=== PATIENT | male | born 1950 | race Caucasian/White ===

== ENCOUNTER 2016-06-20 07:29 | Emergency (ER) | payer OTHER ==
[2016-06-20 07:40] VITALS: RESP 16
[2016-06-20] MEDS ORDERED: NS 1,000 ML IV ONE (08:01)
--- NOTE | 2016-06-20 08:08 | EDPHY ---
H & P Stated Complaint: generalized abd pain/dysuria/nausea Time Seen by Provider: 06/20/16 07:58 HPI/ROS: CHIEF COMPLAINT: Generalized abdominal pain, dysuria, urinary frequency, nausea , slight left flank pain HISTORY OF PRESENT ILLNESS: The patient presents to the ED with a one-week history of generalized abdominal pain, dysuria, urinary frequency, nausea and slight left flank pain. The patient denies prior history of BPH. The patient denies fever, cough or congestion. He does report associated generalized malaise. The patient has no complaints of headache, numbness, weakness or respiratory complaints. The patient denies recent antibiotic usage. REVIEW OF SYSTEMS: A comprehensive 10 point review of systems is otherwise negative aside from elements mentioned in the history of present illness. Source: Patient Exam Limitations: No limitations - Personal History Current Tetanus/Diphtheria Vaccine: Yes Current Tetanus Diphtheria and Acellular Pertussis (TDAP): Yes - Medical/Surgical History Hx Asthma: Yes Hx Chronic Respiratory Disease: No Hx Diabetes: No Hx Cardiac Disease: No Hx Renal Disease: No Hx Cirrhosis: No Hx Alcoholism: No Hx HIV/AIDS: No Hx Splenectomy or Spleen Trauma: No Other PMH: PNEUMONIA, CHRONIC BRONCHITIS, ASTHMA, WATTS'S ESOPHAGUS - Social History Smoking Status: Never smoked - Physical Exam Exam: General Appearance: Slightly obese male, no acute distress Eyes: Pupils equal and round no pallor or injection ENT, Mouth: Mucous membranes moist Respiratory: There are no retractions, lungs are clear to auscultation Cardiovascular: Regular rate and rhythm Gastrointestinal: Minimal suprapubic tenderness, no distension, normal bowel sounds Back: No CVA tenderness Neurological: A&O, normal motor function, normal sensory exam, normal cranial nerves Skin: Warm and dry, no rashes Musculoskeletal: Neck is supple nontender Extremities: symmetrical, full range of motion Constitutional: Initial Vital Signs Temperature (C) 36.5 C 06/20/16 07:37 Heart Rate 83 06/20/16 07:37 Respiratory Rate 16 06/20/16 07:37 Blood Pressure 196/97 H 06/20/16 07:37 O2 Sat (%) 96 06/20/16 07:37 O2 Delivery Mode Room Air Allergies/Adverse Reactions: Penicillins Allergy (Verified 06/20/16 07:36) Home Medications: Medication Instructions Recorded Omeprazole 08/22/13 Medical Decision Making - Diagnostics Imaging: CT abdomen pelvis with IV contrast: Changes consistent with an underlying viral enteritis or noted, no perforation or obstruction, no diverticulitis. ED Course/Re-evaluation: The patient presents to the ED with vague abdominal pain and flank pain. He also complains of dysuria and frequency. The patient was able to void in the emergency department. His postvoid residual was 10 mL. Patient's urinalysis demonstrates no evidence of an infection. The patient's laboratory studies are unremarkable. Given his age, generalized abdominal pain and mild tenderness a CT scan of the abdomen pelvis was obtained which demonstrates changes consistent with a likely viral enteritis. The patient had multiple examinations in the ED by myself. He remains with a benign abdominal examination. I do feel the patient can be discharged home with a prescription for Zofran and Emory to use for pain. He has been instructed that I believe he likely is experiencing an intestinal viral illness which hopefully will be self limited. The patient will be discharged home with customary return precautions and follow-up instructions. Differential Diagnosis: Differential diagnosis considered includes urinary tract infection, urinary retention, intra-abdominal infection, pancreatitis, cholecystitis, perforation, obstruction - Data Points Laboratory Results: Laboratory Results 06/20/16 08:20 06/20/16 08:20 06/20/16 06/20/16 08:20 07:45 WBC 7.40 10^3/uL (3.80-9.50) RBC 5.46 10^6/uL (4.40-6.38) Hgb 16.9 g/dL (13.7-17.5) Hct 47.7 % (40.0-51.0) MCV 87.4 fL (81.5-99.8) MCH 31.0 pg (27.9-34.1) MCHC 35.4 g/dL (32.4-36.7) RDW 11.6 % (11.5-15.2) Plt Count 268 10^3/uL (150-400) MPV 8.9 fL (8.7-11.7) Neut % (Auto) 65.4 % (39.3-74.2) Lymph % (Auto) 20.4 % (15.0-45.0) [place] % (Auto) 10.7 % (4.5-13.0) Eos % (Auto) 2.2 % (0.6-7.6) Baso % (Auto) 0.9 % (0.3-1.7) Nucleat RBC Rel Count 0.0 % (0.0-0.2) Absolute Neuts (auto) 4.84 10^3/uL (1.70-6.50) Absolute Lymphs (auto) 1.51 10^3/uL (1.00-3.00) Absolute Monos (auto) 0.79 10^3/uL (0.30-0.80) Absolute Eos (auto) 0.16 10^3/uL (0.03-0.40) Absolute Basos (auto) 0.07 10^3/uL (0.02-0.10) Absolute Nucleated RBC 0.00 10^3/uL (0-0.01) Immature Gran % 0.4 % (0.0-1.1) Immature Gran # 0.03 10^3/uL (0.00-0.10) Sodium 140 mEq/L (134-144) Potassium 3.8 mEq/L (3.5-5.2) Chloride 105 mEq/L (97-110) Carbon Dioxide 24 mEq/l (22-31) Anion Gap 11 mEq/L (8-16) BUN 10 mg/dL (7-23) Creatinine 1.1 mg/dL (0.7-1.3) Estimated GFR > 60 Glucose 103 H mg/dL (70-100) Calcium 8.9 mg/dL (8.5-10.4) Total Bilirubin 2.4 H mg/dL (0.1-1.4) Conjugated Bilirubin 0.3 mg/dL (0.0-0.5) Unconjugated Bilirubin 2.1 H mg/dL (0.0-1.1) AST 26 IU/L (17-59) ALT 44 IU/L (21-72) Alkaline Phosphatase 65 IU/L (38-126) Total Protein 6.8 g/dL (6.3-8.2) Albumin 4.1 g/dL (3.5-5.0) Lipase 51.0 IU/L (23-300) Urine Color YELLOW Urine Appearance HAZY Urine pH 5.0 (5.0-7.5) Ur Specific [place] 1.019 (1.002-1.030) Urine Protein NEGATIVE (NEGATIVE) Urine Ketones NEGATIVE (NEGATIVE) Urine Blood 1+ H (NEGATIVE) Urine Nitrate NEGATIVE (NEGATIVE) Urine Bilirubin NEGATIVE (NEGATIVE) Urine Urobilinogen NEGATIVE EU (0.2-1.0) Ur Leukocyte Esterase NEGATIVE (NEGATIVE) Urine RBC 1-3 /hpf (0-3) Urine WBC 1-3 /hpf (0-3) Ur Epithelial Cells NONE SEEN /lpf (NONE-1+) Urine Mucus 4+ H /lpf (NONE-1+) Ur Culture Indicated? NOT INDICATED (NI) Urine Glucose NEGATIVE (NEGATIVE) Medications Given: Discontinued Medications Sodium Chloride (Ns) 1,000 mls @ 0 mls/hr IV ONCE ONE PRN Reason: Wide Open Stop: 06/20/16 08:02 Last Admin: 06/20/16 08:21 Dose: 1,000 mls Departure - Departure Disposition: Home, Routine, Self-Care Clinical Impression: Viral enteritis Condition: Good Instructions: Enteritis (ED) Additional Instructions: 1. Take Ibuprofen or Motrin 600 mg by mouth three times a day. 2. Zofran as needed for nausea 3. Emory as needed for pain 4. Sometimes we are unable to diagnose an obvious cause of abdominal pain in the Emergency Department. Based upon our evaluation today, I believe you are having a viral intestinal infection. Because more serious conditions can be difficult to diagnose early in the course of their presentation, we ask that you return to the Emergency Department in 8-12 hours for a recheck if you are still having pain. This is necessary to exclude the development of a more serious condition such as appendicitis or other intra-abdominal emergency. In the event your pain markedly increases before that time or you develop intractable vomiting or fever return to the Emergency Department immediately. 5. Please schedule a follow-up visit with Dr. Tse in the next 2-3 days Referrals: Sai Tse MD [Primary Care Provider] - As per Instructions
[2016-06-20 08:12] LABS: COLOR YELLOW; LEUKOCYTE ESTERASE,URINE NEGATIVE (NEGATIVE); NITRITE,URINE NEGATIVE (NEGATIVE)
[2016-06-20 08:17] LABS: MUCUS 4+ /lpf (NONE-1+)
[2016-06-20 08:34] LABS: % IMMATURE GRANULYOCYTES 0.4 % (0.0-1.1); ABSOLUTE IMMATURE GRANULOCYTES 0.03 10^3/uL (0.00-0.10); ADD DIFF? NO; ADD MORPH? NO; ADD SCAN? NO; ATYPICAL LYMPHOCYTE FLAG 0 (0-99); FRAGMENT RBC FLAG 0 (0-99); HEMATOCRIT 47.7 % (40.0-51.0); HEMOGLOBIN 16.9 g/dL (13.7-17.5); LEFT SHIFT FLG 0 (0-99); LIPEMIA HEMOLYSIS FLAG 90 (0-99); MEAN CELL HEMOGLOBIN CONCENTR. 35.4 g/dL (32.4-36.7); MEAN CELL VOLUME 87.4 fL (81.5-99.8); MEAN PLATELET VOLUME 8.9 fL (8.7-11.7); PLATELET CLUMPS FLAG 10 (0-99); PLATELET COUNT 268 10^3/uL (150-400); RED BLOOD CELL COUNT 5.46 10^6/uL (4.40-6.38); RED CELL DISTRIBUTION WIDTH 11.6 % (11.5-15.2)
[2016-06-20 08:41] LABS: ALANINE AMINOTRANSFERASE 44 IU/L (21-72); ALBUMIN 4.1 g/dL (3.5-5.0); ALKALINE PHOSPHATASE 65 IU/L (38-126); ANION GAP 11 mEq/L (8-16); ASPARTATE AMINOTRANSFERASE 26 IU/L (17-59); BILIRUBIN,TOTAL 2.4 mg/dL (0.1-1.4); BILIRUBIN-CONJUGATED 0.3 mg/dL (0.0-0.5); BILIRUBIN-UNCONJUGATED 2.1 mg/dL (0.0-1.1); CALCIUM 8.9 mg/dL (8.5-10.4); CARBON DIOXIDE 24 mEq/l (22-31); CHLORIDE 105 mEq/L (97-110); CREATININE 1.1 mg/dL (0.7-1.3); GLOMERULAR FILTRATION RATE > 60; GLUCOSE 103 mg/dL (70-100); POTASSIUM 3.8 mEq/L (3.5-5.2); SODIUM 140 mEq/L (134-144); TOTAL PROTEIN 6.8 g/dL (6.3-8.2)
[2016-06-20] MEDS ORDERED: IOPAMIDOL (ISOVUE-300) 50 ML VIAL IV ONE (08:50)
--- NOTE | 2016-06-20 09:42 | CT ---
CT Scan of the Abdomen and Pelvis (With Contrast) June 20, 2016 Indication: Abdominal pain. Technique: No oral or rectal contrast. 90 mL of Isovue-300 were given intravenously by machine power injection. Multidetector helical CT imaging was performed from the diaphragm to the symphysis pubis . Dose reduction techniques were utilized. Findings: Dysmotile small bowel pattern is evidenced by increased intraluminal gas and fluid without pathologic dilatation or transition. The appendix is well visualized and normal. The colon is normal except for moderate sigmoid diverticulosis (no diverticulitis). No pneumoperitoneum, free fluid, mass , lymphadenopathy, or edema. The kidneys are normal. No hydronephrosis, nephrolithiasis, or ureteral calculi. The urinary bladder is normal. The liver, spleen, pancreas, gallbladder, and adrenal glands are normal. The abdominal aorta is doris l caliber with mild calcified atheroma. A small right direct inguinal hernia contains only fat. No agustin ne lesions. Severe degenerative disk disease at L2-L3 and moderate degenerative disk disease at L4-L5 . No fracture or pars defect. Lung bases are clear. Impression: 1. Dysmotile bowel pattern suggests viral gastroenteritis. 2. Normal appendix. 3. No free fluid, abscess, lymphadenopathy, or mass. 4. Sigmoid diverticulosis. Comment: Results were discussed with Cady Miller NP, via the phone. She will convey the results to Jose Wynn.
[2016-06-20 09:43] VITALS: PULSE 80
[2016-06-20] MEDS ORDERED: KETOROLAC 30 MG/1 ML SDV IVP ONE (09:44)
[2016-06-20 10:49] VITALS: BP 144/76; TEMP 96.8; O2SAT 98
== END 2016-06-20 10:49 | disposition home or self-care (01) ==
DX: A08.4 Viral intestinal infection, unspecified (principal); J45.909 Unspecified asthma, uncomplicated
CPT/HCPCS: 74177; 96361; 96374; 99285; J1885; Q9967

== ENCOUNTER 2017-04-09 09:15 | Inpatient (IN) | payer OTHER ==
[2017-05-14] MEDS ORDERED: ROPIVACAINE 0.2% 80 MG, EPINEPHrine 0.2 MG, KETOROLAC TROMETHAMINE 30 MG in SYRINGE 0 ML IU ONE (06:00)
[2017-05-14] MEDS ORDERED: TRANEXAMIC ACID 3,000 MG in NS 50 ML IRR ONE (06:00)
[2017-05-14] MEDS ORDERED: VANCOMYCIN 1 GM VIAL ONE (07:55)
[2017-05-14] MEDS ORDERED: TRANEXAMIC ACID 3,000 MG/50 ML BAG IRR ONE (07:55)
[2017-05-14] MEDS ORDERED: ceFAZolin 2 GM/SWFI 2 GM/20 ML SYR IVP ONE (08:15)
[2017-05-14] MEDS ORDERED: ACETAMINOPHEN 325 MG TAB PO ONE (08:15)
[2017-05-14] MEDS ORDERED: FAMOTIDINE 20 MG TAB PO ONE (08:15)
[2017-05-14] MEDS ORDERED: DEXAMETHASONE 4 MG/ML VIAL IVP ONE (08:15)
[2017-05-14] MEDS ORDERED: LR 1,000 ML IV ONE (08:23)
[2017-05-14] MEDS ORDERED: LIDOCAINE 1% 2 ML INJ ID PRN (08:23)
--- NOTE | 2017-05-14 09:49 | PDHPUP ---
History & Physical Update H&P update statement: This history and physical update is based on an assessment of the patient which was completed after admission or registration (within 24 hours), but prior to the surgery/procedure. H&P update: H&P reviewed & patient examined, no change in patient's condition since H&P completed
[2017-05-14] MEDS ORDERED: MIDAZOLAM 2 MG/2 ML VIAL IVP ONE (10:29)
--- NOTE | 2017-05-14 10:31 | PDANEPAE ---
ANE History of Present Illness r knee oa ANE Past Medical History - Cardiovascular History Hx Hypertension: No Hx Arrhythmias: No Hx Chest Pain: No Hx Coronary Artery / Peripheral Vascular Disease: No Hx CHF / Valvular Disease: No Hx Palpitations: No Cardiovascular History Comment: bp runs higher when he is at a heavy weight, pcp is monitoring - Pulmonary History Hx COPD: No Hx Asthma/Reactive Airway Disease: Yes Hx Recent Upper Respiratory Infection: No Hx Oxygen in Use at Home: No Hx Sleep Apnea: No Sleep Apnea Screening Result - Last Documented: Negative Pulmonary History Comment: colder weather exacerbates asthma - Neurologic History Hx Cerebrovascular Accident: No Hx Seizures: No Hx Dementia: No - Endocrine History Hx Diabetes: No - Renal History Hx Renal Disorders: No - Liver History Hx Hepatic Disorders: No - Neurological & Psychiatric Hx Hx Neurological and Psychiatric Disorders: No - Cancer History Hx Cancer: No - Congenital Disorder History Hx Congenital Disorders: No - GI History Hx Gastrointestinal Disorders: Yes Gastrointestinal History Comment: barretts esophagus. reflux - Other Health History Other Health History: wears glasses. issue with big toenail being treated by pcp- he will f/u with bouchra at pre-op. scalp condition- sores at times - Chronic Pain History Chronic Pain: Yes (bilateral nknees) - Surgical History Prior Surgeries: achilles tendon repair. bilateral knee sugeries. patella repair ANE Review of Systems Review of Systems: - Exercise capacity METS (RN): 4 METS ANE Patient History - Allergies Allergies/Adverse Reactions: Penicillins Allergy (Verified 05/14/17 08:31) Other-Enter Comments - Home Medications Home Medications: Omeprazole Magnesium [Prilosec Otc] 20 mg PO DAILY 08/22/13 [Last Taken 06:30] Albuterol Hfa Anes Only [Proair Hfa Icu (*)] 2 puffs IH QID PRN 04/02/17 [Last Taken 05/13/17 22:00] Herbals/Supplements -Info Only 1 ea PO DAILY 04/02/17 [Last Taken 04/16/17] - NPO status NPO Status: no food or drink >8 hours NPO Since - Liquids (Date): 05/13/17 NPO Since - Liquids (Time): 23:30 NPO Since - Solids (Date): 05/13/17 NPO Since - Solids (Time): 23:30 - Smoking Hx Smoking Status: Never smoked - Family Anes Hx Family Hx Anesthesia Complications: none ANE Labs/Vital Signs - Vital Signs Blood Pressure: 169/101 Heart Rate: 69 Respiratory Rate: 20 O2 Sat (%): 95 Height: 180.34 cm Weight: 95.254 kg ANE Physical Exam - Airway Neck exam: FROM Mallampati Score: Class 1 Mouth exam: normal dental/mouth exam - Pulmonary Pulmonary: no respiratory distress - Cardiovascular Cardiovascular: regular rate and rhythym - ASA Status ASA Status: II ANE Anesthesia Plan Anesthesia Plan: GA w LMA, MAC, spinal Regional Anesthesia: adductor canal FNB
[2017-05-14] MEDS ORDERED: MIDAZOLAM 2 MG/2 ML VIAL ONE (10:43)
[2017-05-14] MEDS ORDERED: ALBUTEROL IH PRN (11:05)
[2017-05-14] MEDS ORDERED: PROPOFOL/EMULSION 500 MG/50 ML BOTTLE IV ONE (11:07)
[2017-05-14] MEDS ORDERED: fentaNYL 100 MCG/2 ML INJ ONE (11:07)
[2017-05-14] MEDS ORDERED: HYDROmorphONE/DILAUDID 2 MG/ML INJ ONE (11:27)
[2017-05-14] MEDS ORDERED: DEXAMETHASONE 4 MG/ML VIAL ONE (11:45)
[2017-05-14] MEDS ORDERED: ROPIVACAINE HCL 150 MG/30 ML INJ ONE (11:45)
[2017-05-14] MEDS ORDERED: ONDANSETRON 4 MG/2 ML VIAL ONE (11:45)
[2017-05-14] MEDS ORDERED: NALOXONE HCL 0.4 MG/ML INJ IVP PRN (11:48)
[2017-05-14] MEDS ORDERED: ONDANSETRON 4 MG/2 ML VIAL IVP PRN ×2 (11:48→12:16)
[2017-05-14] MEDS ORDERED: MEPERIDINE 25 MG/ML SYR IVP PRN (11:48)
[2017-05-14] MEDS ORDERED: PROMETHAZINE HCL 25 MG/ML INJ IVP PRN ×2 (11:48→12:16)
[2017-05-14] MEDS ORDERED: fentaNYL 100 MCG/2 ML INJ IVP PRN (11:48)
[2017-05-14] MEDS ORDERED: HYDROCODONE/APAP 5/325 TAB PO PRN (11:48)
[2017-05-14] MEDS ORDERED: PROPOFOL 200 MG/20 ML VIAL ONE (11:55)
[2017-05-14] MEDS ORDERED: ALBUTEROL 200 PUFFS/18 GM MDI IH PRN (12:08)
[2017-05-14] MEDS ORDERED: PROMETHAZINE HCL 25 MG SUPPR PR PRN (12:16)
[2017-05-14] MEDS ORDERED: diphenhydrAMINE 25 MG CAP PO PRN (12:16)
[2017-05-14] MEDS ORDERED: POLYETHYLENE GLYCOL 3350 17 GM PKT PO PRN (12:16)
[2017-05-14] MEDS ORDERED: MAGNESIUM HYDROXIDE 30 ML UDCUP PO PRN (12:16)
[2017-05-14] MEDS ORDERED: METOCLOPRAMIDE 10 MG/2 ML VIAL IVP PRN (12:16)
[2017-05-14] MEDS ORDERED: TEMAZEPAM 15 MG CAP PO PRN (12:16)
[2017-05-14] MEDS ORDERED: BISACODYL 10 MG SUPP PR PRN (12:16)
[2017-05-14] MEDS ORDERED: ONDANSETRON DISINTEGRATING 4 MG TAB PO PRN (12:16)
[2017-05-14] MEDS ORDERED: LACTULOSE 20 GM/30 ML UDCUP PO PRN (12:16)
[2017-05-14] MEDS ORDERED: CYCLOBENZAPRINE 10 MG TAB PO PRN (12:16)
[2017-05-14] MEDS ORDERED: DIPHENOXYLATE/ATROPINE LOMOTIL 1 TAB PO PRN (12:16)
[2017-05-14] MEDS ORDERED: LR 1,000 ML IV SCH (12:30)
--- NOTE | 2017-05-14 12:30 | POSTANESTH ---
Post Anesthetic Evaluation Cardiovascular Status: Normal, Stable Respiratory Status: Normal, Stable Level of Consciousness/Mental Status: Can Participate in Eval Pain Control: Adequate, Prn Tx Ordered Nausea/Vomiting Control: Adequate, Prn Tx Ordered Complications Possibly Related to Anesthesia: None Noted
[2017-05-14] MEDS: ACETAMINOPHEN 325 MG TAB PO SCH ×2 (17:46→23:18)
[2017-05-14] MEDS: oxyCODONE IR 5 MG TAB PO PRN ×3 (17:59→23:17)
[2017-05-14] MEDS: ceFAZolin 2 GM/DEXTROSE 100 ML IV SCH (18:24)
[2017-05-14 19:36] VITALS: RESP 16
[2017-05-14] MEDS: SENNOSIDES/DOCUSATE SODIUM TAB PO SCH (21:03)
[2017-05-14] MEDS: ASPIRIN EC 81 MG TAB PO SCH (21:03)
[2017-05-14] MEDS: FAMOTIDINE 20 MG TAB PO SCH (21:03)
[2017-05-14 23:37] VITALS: TEMP 98.5
[2017-05-15] MEDS: oxyCODONE IR 5 MG TAB PO PRN ×3 (02:42→12:29)
[2017-05-15] MEDS: ceFAZolin 2 GM/DEXTROSE 100 ML IV SCH (02:42)
[2017-05-15 04:21] VITALS: BP 120/75; PULSE 77; O2SAT 98
[2017-05-15 05:21] LABS: HEMATOCRIT 35.6 % (40.0-51.0); HEMOGLOBIN 12.1 g/dL (13.7-17.5)
[2017-05-15] MEDS: ACETAMINOPHEN 325 MG TAB PO SCH ×2 (06:05→12:28)
[2017-05-15] MEDS ORDERED: PANTOPRAZOLE SODIUM 40 MG TAB PO SCH (09:00)
[2017-05-15] MEDS ORDERED: NON-FORMULARY NEW DRUG (Omeprazole Magnesium [Prilosec Otc] 20 MG) PO SCH (09:00)
--- NOTE | 2017-05-15 09:42 | GOP ---
[f rep st] OPERATIVE REPORT DATE OF OPERATION: 05/14/2017 SURGEON: Astrid Villanueva MD COMMUNITY RELATIONS LIAISON: JOSE MARTIN Mclean. ANESTHESIA: Spinal. PREOPERATIVE DIAGNOSIS: Right knee osteoarthritis. POSTOPERATIVE DIAGNOSIS: Right knee osteoarthritis. PROCEDURE PERFORMED: Total knee arthroplasty. FINDINGS: ESTIMATED BLOOD LOSS: 30 cc. INDICATIONS: This is a 66-year-old male with severe and progressive pain and deformity of the right knee unresponsive to conservative care. Risks and benefits of the surgical intervention were explain ed in detail. DESCRIPTION OF PROCEDURE: The patient was brought to the operative room and placed on the table in t he supine position. Spinal anesthesia was induced without difficulty. A pneumatic tourniquet was ap plied about the right proximal thigh, and the leg was prepped and draped in a sterile fashion. The l eg moody was applied. After exsanguination by elevation the tourniquet was inflated to 250 mm of me rcury. Incision was made anterior medial from the tibial tuberosity to a point cm proximal to the superior pole of the patella. Medial parapatellar arthrotomy was carried out from the superior pole of the patella and posteriorly in line with the fibers of the Type 2 VMO. The medial collateral lig ament was elevated and the infrapatellar fat pad was resected. The patella was everted and the articular surface was excised. A 35 mm patellar button was placed. T he distal femoral guide hole was drilled and the 60 degree alignment samy was placed. A 10 mm distal femoral cut was made without difficulty. Attention was turned to the tibia and a standard 9 mm cut based on the lateral tibial condyle was per formed. The tibial articular surface was excised without difficulty. Attention was turned back to the femur and a size 6 Triathlon femoral cutting block was positioned. Anterior, posterior, and chamfer cuts were made, followed by the intercondylar box cut. The knee was extended and the remnants of the medial and lateral meniscus were excised. The posterio r capsule was injected with ropivacaine, epinephrine and Toradol. A size 6 MIS mini-keel tibial tray was positioned. Trial reduction was then carried out. There was excellent range of motion, alignme nt, and stability using the 13 mm polyethylene. All trials were then removed. The joint was thoroughly irrigated and carefully dried. Two packages of cement and 2 grams of vancomycin were mixed in the vacuum mixer and placed on the fixation surface s of all surfaces of the components. The components were implanted and all excess cement was thoroug hly removed. The permanent 13 mm polyethylene was placed without difficulty. The tourniquet was deflated and all bleeders were coagulated. The wound was thoroughly irrigated and closed using interrupted sutures of 2-0 Vicryl for the joint capsule. The subcu was closed with 3-0 Vicryl and the skin with 4-0 Monocryl. Dermabond and Steri-Strips were applied followed by a compre ssive dressing. The patient was then moved from the operating room to the recovery room in good cond ition, having tolerated the procedure well. PATHOLOGY: Severe medial, patellar, and femoral osteoarthritis. /[id number]/MODL
[2017-05-15] MEDS: SENNOSIDES/DOCUSATE SODIUM TAB PO SCH (09:46)
[2017-05-15] MEDS: FAMOTIDINE 20 MG TAB PO SCH (09:46)
[2017-05-15] MEDS: ASPIRIN EC 81 MG TAB PO SCH (09:46)
--- NOTE | 2017-05-15 10:42 | GPROG ---
[f rep st] PROGRESS NOTE The patient was seen and examined today. He is awake and alert and oriented x4. He is moving all hi s extremities well and his dressing is clean and dry. His JAMAAL is putting out some blood-tinged fluid. His pain is not well controlled on 20 mg of OxyContin b.i.d. from a long-acting standpoint, and we will increase this to 20 t.i.d. I am keeping an eye on the patient while Dr. Lacey is out of t own. Hopefully he will be able to go home tomorrow. /[id number]/MODL
--- NOTE | 2017-05-15 13:17 | SOAPPROG ---
SOAP Progress Note Assessment/Plan: Assessment: Mark is doing well POD 1 s/p R TKA 1). pain management: pain well controlled on oral pain meds 2) VTE ppx: aspirin 81 mg BID for 4 weeks recommended 3) anemia: level expected initially postop 4) d/c planning: d/c to home today pending release from PT Plan: 05/15/17 13:16 Subjective: Mark is doing well today, denies SOB, chest pain and N/V Objective: Vital Signs Temp Pulse Resp BP Pulse Ox 36.9 C 77 16 120/75 98 05/15/17 04:00 05/15/17 04:00 05/15/17 04:00 05/15/17 04:00 05/15/17 04:00 Laboratory Results 05/15/17 05:05 05/14/17 05/15/17 05/16/17 05:59 05:59 05:59 Intake Total 3145 Output Total 480 Balance 2665 RLE; incision dressing is clean and dry, NVI, +pf/df ICD10 Worksheet Patient Problems: Problems Problem Status Onset Primary localized osteoarthritis of right knee Acute
--- NOTE | 2017-05-15 14:13 | ASDISCHSUM ---
Discharge Information Plan Status:Home with No Needs Medically Cleared to Leave: Discharge Date:05/15/2017 12:52 PM D/C Disposition:Home, Routine, Self-Care ADT D/C Disposition:Home, Routine, Self-Care Projected Discharge Date:05/15/2017 12:52 PM Transportation at D/C: Discharge Delay Reason: Follow-Up Date:05/15/2017 12:52 PM Discharge Slot: Final Diagnosis: Placement Information Patient Contact Information Contact Name:SUSAN Relationship:Hussein Address: City: [facility] Phone: [facility] Code: Email: Financial Information Financial Class:Medicare Advantage Plans Primary Plan Desc:[facility] [employer] Primary Plan Number:[id number] Secondary Plan Desc: Secondary Plan Number: Assessment Information Intervention Information
--- NOTE | 2017-05-15 22:25 | GDS ---
[f rep st] DISCHARGE SUMMARY ADMISSION DIAGNOSIS: Right knee osteoarthritis. DISCHARGE DIAGNOSIS: Right knee osteoarthritis. PROCEDURE: Right total knee arthroplasty. VT PROPHYLAXIS: Aspirin recommend 81 mg twice daily for 4 weeks. BRIEF DESCRIPTION OF HOSPITAL STAY: Patient was admitted for an elective joint arthroplasty. The pa tient tolerated the procedure well and has passed physical therapy. The patient was given appropriat e antibiotic prophylaxis and venous thromboembolism prophylaxis. The patient's pain was well control led on oral pain medication, patient was holding down food, and had urinated. Decision was made to d ischarge the patient. The patient was given post-operative prescriptions pre-operatively. PLAN: Follow up as scheduled at Dr. Villanueva's office on June 12 at 9 a.m. /[id number]/MODL
== END 2017-05-15 12:52 | disposition home or self-care (01) | DRG 470 ==
LOC: F3N 05-14 07:50
PROVIDERS: ADMIT Orthopaedic Surgery; ATTEND Orthopaedic Surgery
PROC: 0SRC0J9 Replacement of Right Knee Joint with Synthetic Substitute, Cemented, Open Approach (ICD-10-PCS; principal; 2017-05-14 10:30)
DX: M17.11 Unilateral primary osteoarthritis, right knee (principal); J45.909 Unspecified asthma, uncomplicated; K21.9 Gastro-esophageal reflux disease without esophagitis
CPT/HCPCS: 97116-GP; 97161-GP; 97165-GO; C1713; G8978-GP-CI; G8978-GP-CK; G8979-GP-CI; G8980-GP-CI; G8987-GO-CI; G8988-GO-CI; G8989-GO-CI; J0171; J0690; J1100; J1170; J1885; J2250; J2405; J2704; J2795; J3010; J3370

== ENCOUNTER 2017-05-20 07:38 | Emergency (ER) | payer OTHER ==
[2017-05-20 07:45] VITALS: RESP 18; TEMP 97.5
[2017-05-20] MEDS ORDERED: ONDANSETRON 4 MG/2 ML VIAL IVP ONE (07:57)
[2017-05-20] MEDS ORDERED: NS 1,000 ML IV ONE (07:57)
--- NOTE | 2017-05-20 08:06 | EDPHY ---
HPI/HX/ROS/PE/MDM Narrative: CHIEF COMPLAINT: Vomiting, pain control HISTORY OF PRESENT ILLNESS: This patient is a 66 y/o male s/p right knee total arthroplasty under spinal anesthesia 05/14/[address] Villanueva, orthopedic surgeon, complaining of nausea , vomiting, body aches, and insomnia worsening since 05/16/17. He felt well the first two days following his procedure; his pain was well controlled and he was able to eat a bland diet. Nic, he began vomiting and had intermittent diaphoresis. He measured his temperature at home, and noted he was afebrile. He is prescribed 10mg oxycodone IR every 4 hours for pain relief, but has not been able to keep up this schedule due to his frequent vomiting. He endorses lack of appetite due to nausea and inability to sleep due to his discomfort. He has tried lexy flavio for nausea relief, but no further medications. He denies abnormal bowel movements or urinary complaints. He was scheduled to begin physical therapy today, but presents to the emergency department instead due to his ongoing severe discomfort. No fever, chills, chest pain, cough, shortness of breath, palpitations, diarrhea , urinary complaints, headache, lightheadedness. REVIEW OF SYSTEMS: Aside from elements discussed in the HPI, a comprehensive 10-point review of systems was reviewed and is negative. PAST MEDICAL HISTORY: 1. Asthma 2. Right knee total arthroplasty 3. Chronic bronchitis 4. History of pneumonia 5. Valentine's esophagus SOCIAL HISTORY: Nonsmoker. Lives in [place]. Retired. VITAL SIGNS: Reviewed by me GENERAL: Well-developed, well-nourished, resting comfortably in no respiratory distress. HEENT: Atraumatic. Eyes: No icterus, no injection. Mouth: moist mucous membranes. No erythema or lesions. Neck: supple with no adenopathy. LUNGS: Clear to auscultation bilaterally, no wheezes, rhonchi or rales. CARDIAC: Regular rate and rhythm, no rubs, murmurs or gallops. ABDOMEN: Soft, nontender, nondistended, bowel sounds normal. BACK: No CVA tenderness. EXTREMITIES: Right lower extremity diffusely swollen, ecchymosis present from groin to toes. Calf compartment soft. Good dorsalis pedis pulse. NEURO: Alert and oriented, grossly nonfocal. SKIN: Warm and dry, no rash. PSYCHIATRIC: Normal mentation, no agitation. Portions of this note were transcribed by a medical equipment technician. I personally performed a history, physical exam, medical decision making, and confirmed accuracy of information the transcribed note. ED Course: 66 y/o male s/p right knee total arthroplasty 05/14/17 presents with nausea, vomiting, and right leg pain worsening since Friday05/16/17, four days ago. Exam reveals right lower extremity diffusely swollen, ecchymosis present from groin to toes. Calf compartment soft. Good dorsalis pedis pulse. Lungs are clear bilaterally, the patient is afebrile. No complaints of shortness of breath or chest discomfort. IV established. Plan for labs including CBC, chemistries, liver, lipase, UA, flu swab. Plan for right lower extremity ultrasound. Plan to administer 4mg IV Zofran, 1L IV NS for symptom relief. Administered 1mg IV Dilaudid for pain relief. 09:[address] Cooper, radiologist. US right lower extremity negative for DVT. 09:24 Reassessed patient. He is feeling 'marginally better'. He feels exhausted and would like to try to nap. 11:20 Reassessed patient. He continues to experience some pain and nausea. Plan to administer 12.5mg IV Phenergan and 0.5mg IV Dilaudid for symptom relief. I suspect the majority of the patient's symptom complaints are related to nausea from narcotics, and now he is having ongoing nausea and vomiting secondary to pain and potentially some narcotic withdrawal. Patient does describe having an episode of diaphoresis on the 1st day that he was unable to tolerate p.o. medications. Plan to discharge home in good condition with prescriptions for oral Phenergan and Dilaudid. He will follow up with his orthopedic surgeon and physical therapist. Return precautions discussed. He is comfortable with this plan. MDM: Differential diagnosis of the patient's nausea and vomiting was considered including but not limited to gastroenteritis, gastritis, withdrawal symptoms, intraabdominal processes including appendicitis, pancreatitis, bowel obstruction and medication side effect. - Data Points Imaging Results: US: Impression: No evidence of deep vein thrombosis in the right lower extremity. Results called and discussed with Jeanette Barlow MD, at 05/20/2017 9:09 Dictated By: Rom Cooper MD CXR: Impression: No acute abnormality. Dictated By: Crow Gong MD Imaging: Discussed imaging studies w/ director call center sales Radiologist Laboratory Results: Laboratory Results 05/20/17 07:50 05/20/17 07:50 Medications Given: Discontinued Medications Hydromorphone HCl (Dilaudid) 1 mg IVP EDNOW ONE Stop: 05/20/17 08:22 Last Admin: 05/20/17 08:28 Dose: 1 mg Hydromorphone HCl (Dilaudid) 0.5 mg IVP EDNOW ONE Stop: 05/20/17 11:28 Last Admin: 05/20/17 11:39 Dose: 0.5 mg Sodium Chloride (Ns) 1,000 mls @ 0 mls/hr IV ONCE ONE PRN Reason: Wide Open Stop: 05/20/17 07:58 Last Admin: 05/20/17 08:01 Dose: 1,000 mls Ondansetron HCl (Zofran) 4 mg IVP EDNOW ONE Stop: 05/20/17 07:58 Last Admin: 05/20/17 08:01 Dose: 4 mg Promethazine HCl (Phenergan) 12.5 mg IVP EDNOW ONE Stop: 05/20/17 11:27 Last Admin: 05/20/17 11:38 Dose: 12.5 mg General Time Seen by Provider: 05/20/17 07:48 Initial Vital Signs: Initial Vital Signs Temperature (C) 36.4 C 05/20/17 07:42 Heart Rate 97 05/20/17 07:42 Respiratory Rate 18 05/20/17 07:42 Blood Pressure 164/93 H 05/20/17 07:42 O2 Sat (%) 93 05/20/17 07:42 O2 Delivery Mode Room Air Allergies/Adverse Reactions: Penicillins Allergy (Verified 05/20/17 07:41) Other-Enter Comments Home Medications: Medication Instructions Recorded Omeprazole Magnesium [Prilosec Otc] 20 mg PO DAILY 08/22/13 Albuterol Hfa Anes Only [Proair 2 puffs IH QID PRN 04/02/17 Hfa Icu (*)] Herbals/Supplements -Info Only 1 ea PO DAILY 04/02/17 Acetaminophen [Tylenol 325mg (*)] 650 mg PO Q6HRS tab 12/06/17 Aspirin EC [Aspirin EC 81 mg (*)] 81 mg PO BID tab 05/14/17 Sennosides/Docusate Sodium 1 - 2 tab PO BID tab 05/14/17 [Senokot-S] celeCOXIB [Celebrex (*)] 200 mg PO DAILY cap 05/14/17 oxyCODONE IR [Oxycodone Ir (*)] 5 - 10 mg PO Q3HRS PRN tab 05/14/17 HYDROmorphone HCL [Dilaudid 2 mg 2 mg PO Q3-4PRN PRN #15 tab 05/20/17 (*)] Ondansetron Odt [Zofran Odt 4 mg 4 mg PO Q6 PRN #14 tab 05/20/17 (RX)] Ondansetron Odt [Zofran Odt 4 mg 4 mg PO Q6 PRN #8 tab 05/20/17 (RX)] Promethazine HCl [Phenergan 50mg 25 mg RC Q8HRS PRN #10 suppr 05/20/17 supp (*)] Departure - Departure Disposition: Home, Routine, Self-Care Clinical Impression: Status post right knee replacement Nausea & vomiting Qualifiers: Vomiting type: unspecified Vomiting Intractability: non-intractable Qualified Code(s): R11.2 - Nausea with vomiting, unspecified Medication side effect Qualifiers: Encounter type: initial encounter Qualified Code(s): T88.7XXA - Unspecified adverse effect of drug or medicament, initial encounter Condition: Good Instructions: Promethazine (By mouth), Hydromorphone (By mouth), Ondansetron ( By mouth, Into the mouth), Acute Nausea and Vomiting (ED) Additional Instructions: 1. Follow up with Dr. Villanueva and with physical therapy as soon as possible. 2. Consider trying Dilaudid by mouth instead of Oxycodone. If you do continue taking oxycodone, I recommend you reduce your oxycodone dosage to 5mg four times per day as we discussed. 3. Take Zofran or use Phenergan suppositories as prescribed to reduce nausea. Small, frequent meals will also help to reduce nausea. 4. Return to the emergency department for uncontrollable vomiting or diarrhea, fever, severe pain, increased redness, swelling, warmth, or discharge from your surgical site, chest pain, shortness of breath, or other worsening of condition. Referrals: Sai Tse MD [Primary Care Provider] - As per Instructions Loi Villanueva MD [Medical Doctor] - As per Instructions Prescriptions: Promethazine HCl [Phenergan 50mg supp (*)] 25 mg RC Q8HRS PRN #10 suppr PRN Reason: nausea HYDROmorphone HCL [Dilaudid 2 mg (*)] 2 mg PO Q3-4PRN PRN #15 tab PRN Reason: Pain, Breakthrough Ondansetron Odt [Zofran Odt 4 mg (RX)] 4 mg PO Q6 PRN #14 tab PRN Reason: Nausea Ondansetron Odt [Zofran Odt 4 mg (RX)] 4 mg PO Q6 PRN #8 tab PRN Reason: Nausea Report Scribed for: Jeanette Barlow Report Scribed by: Iraida Franco Date of Report: 05/20/17 Time of Report: 08:55
[2017-05-20] MEDS ORDERED: HYDROmorphONE/DILAUDID 1 MG/ML INJ IVP ONE ×2 (08:21→11:27)
[2017-05-20 08:25] LABS: % IMMATURE GRANULYOCYTES 0.6 % (0.0-1.1); ABSOLUTE IMMATURE GRANULOCYTES 0.07 10^3/uL (0.00-0.10); ADD DIFF? NO; ADD MORPH? NO; ADD SCAN? NO; ATYPICAL LYMPHOCYTE FLAG 0 (0-99); FRAGMENT RBC FLAG 0 (0-99); HEMATOCRIT 34.5 % (40.0-51.0); HEMOGLOBIN 12.2 g/dL (13.7-17.5); LEFT SHIFT FLG 10 (0-99); LIPEMIA HEMOLYSIS FLAG 90 (0-99); MEAN CELL HEMOGLOBIN 31.5 pg (27.9-34.1); MEAN CELL HEMOGLOBIN CONCENTR. 35.4 g/dL (32.4-36.7); MEAN CELL VOLUME 89.1 fL (81.5-99.8); MEAN PLATELET VOLUME 9.1 fL (8.7-11.7); PLATELET CLUMPS FLAG 0 (0-99); PLATELET COUNT 437 10^3/uL (150-400); RED BLOOD CELL COUNT 3.87 10^6/uL (4.40-6.38)
[2017-05-20 08:35] LABS: ANION GAP 15 mEq/L (8-16); CALCIUM 9.5 mg/dL (8.5-10.4); CARBON DIOXIDE 25 mEq/l (22-31); CHLORIDE 101 mEq/L (97-110); CREATININE 1.1 mg/dL (0.7-1.3); GLOMERULAR FILTRATION RATE > 60; GLUCOSE 117 mg/dL (70-100); POTASSIUM 4.2 mEq/L (3.5-5.2); SODIUM 141 mEq/L (134-144)
[2017-05-20 09:50] LABS: BACTERIA TRACE /hpf (NONE SEEN); COLOR AMBER; LEUKOCYTE ESTERASE,URINE NEGATIVE (NEGATIVE); MUCUS 2+ /lpf (NONE-1+); NITRITE,URINE NEGATIVE (NEGATIVE)
[2017-05-20] MEDS ORDERED: PROMETHAZINE HCL 25 MG/ML INJ IVP ONE (11:26)
[2017-05-20 11:46] VITALS: BP 158/82; PULSE 88; O2SAT 96
== END 2017-05-20 12:30 | disposition home or self-care (01) ==
DX: R11.2 Nausea with vomiting, unspecified (principal); T50.7X5A Adverse effect of analeptics and opioid receptor antagonists, initial encounter; J45.909 Unspecified asthma, uncomplicated; Z79.82 Long term (current) use of aspirin; Z96.651 Presence of right artificial knee joint
CPT/HCPCS: 71020; 93971; 96361; 96374; 96375; 96376; 99285; J1170; J2405; J2550

== ENCOUNTER 2017-07-02 05:54 | Day surgery (SDC) | payer OTHER ==
[2017-07-02] MEDS ORDERED: LR 1,000 ML IV ONE (06:04)
[2017-07-02] MEDS ORDERED: LIDOCAINE 1% 2 ML INJ ID PRN (06:04)
[2017-07-02] MEDS ORDERED: PROPOFOL/EMULSION 500 MG/50 ML BOTTLE IV ONE (07:05)
--- NOTE | 2017-07-02 07:11 | PDANEPAE ---
ANE Past Medical History - Cardiovascular History Hx Hypertension: No Hx Arrhythmias: No Hx Chest Pain: No Hx Coronary Artery / Peripheral Vascular Disease: No Hx CHF / Valvular Disease: No Hx Palpitations: No Cardiovascular History Comment: bp runs higher when he is at a heavy weight, pcp is monitoring - Pulmonary History Hx COPD: No Hx Asthma/Reactive Airway Disease: Yes Hx Recent Upper Respiratory Infection: No Hx Oxygen in Use at Home: No Hx Sleep Apnea: No Sleep Apnea Screening Result - Last Documented: Negative Pulmonary History Comment: colder weather exacerbates asthma - Neurologic History Hx Cerebrovascular Accident: No Hx Seizures: No Hx Dementia: No - Endocrine History Hx Diabetes: No - Renal History Hx Renal Disorders: No - Liver History Hx Hepatic Disorders: No - Neurological & Psychiatric Hx Hx Neurological and Psychiatric Disorders: No - Cancer History Hx Cancer: No - Congenital Disorder History Hx Congenital Disorders: No - GI History Hx Gastrointestinal Disorders: Yes Gastrointestinal History Comment: barretts esophagus. reflux - Other Health History Other Health History: wears glasses. issue with big toenail being treated by pcp- he will f/u with bouchra at pre-op. scalp condition- sores at times - Chronic Pain History Chronic Pain: No - Surgical History Prior Surgeries: achilles tendon repair. bilateral knee sugeries. patella repair ANE Review of Systems Review of Systems: - Exercise capacity METS (RN): 4 METS ANE Patient History - Allergies Allergies/Adverse Reactions: Penicillins Allergy (Verified 05/20/17 07:41) Other-Enter Comments - Home Medications Home Medications: Omeprazole Magnesium [Prilosec Otc] 20 mg PO DAILY 08/22/13 [Last Taken 04:30] Albuterol Hfa Anes Only [Proair Hfa Icu (*)] 2 puffs IH QID PRN 04/02/17 [Last Taken 06/30/17] Herbals/Supplements -Info Only 1 ea PO DAILY 04/02/17 [Last Taken 04/16/17] - NPO status NPO Since - Liquids (Date): 07/01/17 NPO Since - Liquids (Time): 23:00 NPO Since - Solids (Date): 07/01/17 NPO Since - Solids (Time): 23:00 - Smoking Hx Smoking Status: Never smoked - Family Anes Hx Family Hx Anesthesia Complications: none ANE Labs/Vital Signs - Vital Signs Blood Pressure: 141/86 Heart Rate: 83 Respiratory Rate: 14 O2 Sat (%): 94 Height: 180.34 cm Weight: 90.718 kg ANE Physical Exam - Airway Neck exam: FROM Mallampati Score: Class 2 Mouth exam: normal dental/mouth exam - Pulmonary Pulmonary: no respiratory distress, no rales or rhonchi, clear to auscultation - Cardiovascular Cardiovascular: regular rate and rhythym, no murmur, rub, or gallop - ASA Status ASA Status: II ANE Anesthesia Plan Anesthesia Plan: GA with mask
[2017-07-02] MEDS ORDERED: LIDOCAINE 2% 5 ML SDV ONE (07:21)
[2017-07-02] MEDS ORDERED: RANITIDINE 50 MG/2 ML VIAL ONE (07:21)
[2017-07-02] MEDS ORDERED: KETOROLAC 30 MG/1 ML SDV ONE (07:21)
[2017-07-02] MEDS ORDERED: NALOXONE HCL 0.4 MG/ML INJ IVP PRN (07:22)
[2017-07-02] MEDS ORDERED: ACETAMINOPHEN 500 MG TAB PO PRN (07:22)
[2017-07-02] MEDS ORDERED: MEPERIDINE 25 MG/ML SYR IVP PRN (07:22)
[2017-07-02] MEDS ORDERED: HYDROCODONE/APAP 5/325 TAB PO PRN (07:22)
[2017-07-02] MEDS ORDERED: OXYCODONE/APAP 5/325 TAB PO PRN (07:22)
[2017-07-02] MEDS ORDERED: DIAZEPAM 10 MG/2 ML SYR IVP PRN (07:22)
[2017-07-02] MEDS ORDERED: DEXAMETHASONE 4 MG/ML VIAL IVP PRN (07:22)
[2017-07-02] MEDS ORDERED: ALBUTEROL 3 ML DEYVIAL IH PRN (07:22)
[2017-07-02] MEDS ORDERED: LR 500 ML IV PRN (07:22)
[2017-07-02] MEDS ORDERED: ONDANSETRON 4 MG/2 ML VIAL IVP PRN (07:22)
[2017-07-02] MEDS ORDERED: fentaNYL 100 MCG/2 ML INJ ONE (07:45)
[2017-07-02] MEDS: fentaNYL 100 MCG/2 ML INJ IVP PRN ×2 (07:47→08:16)
--- NOTE | 2017-07-02 07:57 | POSTANESTH ---
Post Anesthetic Evaluation Cardiovascular Status: Normal, Stable Respiratory Status: Normal, Stable Pain Control: Adequate, Prn Tx Ordered Nausea/Vomiting Control: Adequate, Prn Tx Ordered Complications Possibly Related to Anesthesia: None Noted
[2017-07-02 08:49] VITALS: BP 133/82; PULSE 73; RESP 14; TEMP 97.9; O2SAT 93
[2017-07-02] MEDS ORDERED: OXYCODONE/APAP 5/325 TAB ONE (09:08)
--- NOTE | 2017-07-03 03:31 | GOP ---
[f rep st] OPERATIVE REPORT DATE OF OPERATION: 07/02/2017 SURGEON: Astrid Villanueva MD ANESTHESIA: Sedation. 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 PROCEDURE PERFORMED: Right knee manipulation under anesthesia. FINDINGS: INDICATIONS: The patient is a gentleman well known to me, who has had a right total knee arthroplast y approximately 6 or 7 weeks ago, and had stiffness and lack of progression with range of motion. R isks and benefits were discussed with the patient regarding manipulation under anesthesia. The risks including fracture were discussed with the patient, and the patient had an informed consent obtained . DESCRIPTION OF PROCEDURE: The patient was identified in the preoperative holding area. His right lo wer extremity was marked. He was then brought back to the operating room. After induction of anesth esia, a time-out was taken to review patient, laterality, procedures, allergies, and antibiotic statu s. We then proceeded with a manipulation under anesthesia. Pre-manipulation range of motion was 5 t o 70. We performed manipulation under anesthesia. With firm pressure, we got good scar t issue release. Post-procedure range of motion was from 0 to 130. The patient was then awakened and brought to PACU in good condition, with a well-perfused limb. The plan is for the patient to be weig htbearing as tolerated. He will start physical therapy exercises. /[id number]/MODL
== END 2017-07-02 09:30 | disposition home or self-care (01) ==
LOC: FSGY 05:54
PROVIDERS: ATTEND Orthopaedic Surgery
PROC: 0SSCXZZ Reposition Right Knee Joint, External Approach (ICD-10-PCS; principal; 2017-07-02 07:15)
DX: M24.661 Ankylosis, right knee (principal); Z96.651 Presence of right artificial knee joint; J45.909 Unspecified asthma, uncomplicated; K21.9 Gastro-esophageal reflux disease without esophagitis
CPT/HCPCS: J1885; J2704; J2780; J3010

== ENCOUNTER → 2018-08-24 | Outpatient (CLI) | payer OTHER | LOC: FIMAGING 09:46 | PROVIDERS: ATTEND Family Medicine | DX: J98.11 Atelectasis (principal) ==

== ENCOUNTER → 2018-09-17 | Outpatient (CLI) | payer OTHER | PROVIDERS: ATTEND Family Medicine | DX: R13.10 Dysphagia, unspecified (principal); R09.89 Other specified symptoms and signs involving the circulatory and respiratory systems | CPT/HCPCS: 92611-GN ==